=== PATIENT | male | born 1955 | race Caucasian/White ===

== ENCOUNTER 2017-04-14 12:56 | Inpatient (IN) | payer OTHER, BC ==
[2017-04-14 13:54] LABS: HEMATOCRIT 44.4 % (42.0-52.0); HEMOGLOBIN 14.7 g/dl (14.0-18.0); MEAN CORPUSCULAR HEMOGLOBIN 28.1 pg (27.0-33.0); MEAN CORPUSCULAR HGB CONC 33.1 g/dl (32.0-36.5); MEAN CORPUSCULAR VOLUME 84.7 fl (80.0-96.0); PLATELET COUNT, AUTOMATED 257 10^3/uL (150-450); RED BLOOD COUNT 5.24 10^6/uL (4.30-6.10); RED CELL DISTRIBUTION WIDTH 13.4 % (11.5-14.5); WHITE BLOOD COUNT 9.1 10^3/uL (4.0-10.0)
[2017-04-14 14:09] LABS: INR 1.03; PROTHROMBIN TIME 13.6 SECONDS (12.4-14.5)
[2017-04-14 14:10] LABS: PARTIAL THROMBOPLASTIN TIME 28.1 SECONDS (26.8-37.9)
[2017-04-14 14:15] LABS: AMPHETAMINES LEVEL URINE NEGATIVE (NEGATIVE); BARBITURATES URINE NEGATIVE (NEGATIVE); BENZODIAZEPINES URINE NEGATIVE (NEGATIVE); CANNABINOIDS URINE NEGATIVE (NEGATIVE); COCAINE METABOLITE URINE NEGATIVE (NEGATIVE); METHADONE URINE NEGATIVE (NEGATIVE); OPIATES URINE NEGATIVE (NEGATIVE); PHENCYCLIDINE URINE NEGATIVE (NEGATIVE)
[2017-04-14 14:24] LABS: ALBUMIN 3.4 GM/DL (3.2-5.2); ALBUMIN/GLOBULIN RATIO 1.06 (1.00-1.93); ALKALINE PHOSPHATASE 64 U/L (45-117); ALT/SGPT 30 U/L (12-78); ANION GAP 6 MEQ/L (8-16); AST/SGOT 20 U/L (7-37); BILIRUBIN,DIRECT < 0.1 MG/DL (0.0-0.2); BILIRUBIN,TOTAL 0.3 MG/DL (0.2-1.0); BLOOD UREA NITROGEN 17 MG/DL (7-18); CALCIUM LEVEL 8.3 MG/DL (8.8-10.2); CARBON DIOXIDE LEVEL 29 MEQ/L (21-32); CHLORIDE LEVEL 107 MEQ/L (98-107); CREATININE FOR GFR 1.36 MG/DL (0.70-1.30); ETHYL ALCOHOL (ETHANOL) < 0.003 % (0.000-0.010); GLOMERULAR FILTRATION RATE 56.5 (>49); GLUCOSE, FASTING 119 MG/DL (70-100); POTASSIUM SERUM 3.7 MEQ/L (3.5-5.1); SALICYLATE LEVEL < 1.7 MG/DL (5.0-30.0); SODIUM LEVEL 142 MEQ/L (136-145); TOTAL PROTEIN 6.6 GM/DL (6.4-8.2)
[2017-04-14 14:25] LABS: ACETAMINOPHEN LEVEL < 2.0 UG/ML (10.0-30.0)
[2017-04-14] MEDS ORDERED: MOM 30ML SUSPENSION UDC PO (19:30)
[2017-04-14] MEDS ORDERED: OLANZapine 5 MG TAB PO (19:30)
[2017-04-14] MEDS ORDERED: traZODone 50 MG TAB PO (19:30)
[2017-04-14] MEDS ORDERED: MAALOX 30 ML SUSP *UDC PO (19:30)
[2017-04-14] MEDS ORDERED: ACETAMINOPHEN TAB 650MG DOSE (2X325MG) PO (19:30)
[2017-04-14] MEDS: LOSARTAN 50 MG TAB PO (21:00)
[2017-04-14] MEDS: ATORVASTATIN 20 MG TAB PO (21:00)
[2017-04-14] MEDS: GABAPENTIN 300 MG CAP PO (21:00)
[2017-04-14] MEDS: APIXABAN 5 MG TAB (ELIQUIS) PO (21:00)
[2017-04-15] MEDS: LEVOTHYROXINE 100MCG TABLET (0.1MG) PO (06:20)
[2017-04-15] MEDS: metFORMIN (GLUCOPHAGE) 500 MG TAB PO (08:16)
[2017-04-15] MEDS: APIXABAN 5 MG TAB (ELIQUIS) PO ×2 (08:16→21:02)
[2017-04-15] MEDS: SERTRALINE HCL 50 MG TAB PO ×2 (08:16→12:28)
[2017-04-15] MEDS: diltiaZEM **CD** 180 MG CAP PO (08:16)
[2017-04-15] MEDS: FENOFIBRATE 145 MG TAB (TRICOR) PO (08:16)
[2017-04-15] MEDS: FUROSEMIDE 40 MG TAB PO (08:16)
[2017-04-15] MEDS: OMEPRAZOLE 20 MG CAP PO (08:17)
[2017-04-15] MEDS: GABAPENTIN 300 MG CAP PO ×2 (08:17→21:04)
[2017-04-15 11:22] LABS: ESTIMATED AVERAGE GLUCOSE 160 MG/DL (60-110); HEMOGLOBIN A1c 7.2 %
[2017-04-15] MEDS: PILL CUTTER/CRUSHER XX (12:27)
[2017-04-15] MEDS: ATORVASTATIN 20 MG TAB PO (21:04)
[2017-04-15] MEDS: LOSARTAN 50 MG TAB PO (21:05)
[2017-04-16] MEDS: LEVOTHYROXINE 100MCG TABLET (0.1MG) PO (06:03)
[2017-04-16 06:27] LABS: BEDSIDE GLUCOSE 129 MG/DL (80-115)
[2017-04-16] MEDS: metFORMIN (GLUCOPHAGE) 500 MG TAB PO (08:23)
[2017-04-16] MEDS: FENOFIBRATE 145 MG TAB (TRICOR) PO (08:23)
[2017-04-16] MEDS: ARIPiprazole 15 MG TAB (AbiLIFY) PO (08:24)
[2017-04-16] MEDS: APIXABAN 5 MG TAB (ELIQUIS) PO ×2 (08:24→21:02)
[2017-04-16] MEDS: SERTRALINE 100 MG TAB PO (08:26)
[2017-04-16] MEDS: GABAPENTIN 300 MG CAP PO ×2 (08:26→21:03)
[2017-04-16] MEDS: OMEPRAZOLE 20 MG CAP PO (08:26)
[2017-04-16] MEDS: diltiaZEM **CD** 180 MG CAP PO (08:26)
[2017-04-16] MEDS: FUROSEMIDE 40 MG TAB PO (08:26)
[2017-04-16] MEDS: PILL CUTTER/CRUSHER XX (08:27)
[2017-04-16 08:46] LABS: ALBUMIN 3.5 GM/DL (3.2-5.2); ALBUMIN/GLOBULIN RATIO 1.17 (1.00-1.93); ALKALINE PHOSPHATASE 80 U/L (45-117); ALT/SGPT 29 U/L (12-78); ANION GAP 8 MEQ/L (8-16); AST/SGOT 18 U/L (7-37); BILIRUBIN,TOTAL 0.3 MG/DL (0.2-1.0); BLOOD UREA NITROGEN 18 MG/DL (7-18); CALCIUM LEVEL 8.4 MG/DL (8.8-10.2); CARBON DIOXIDE LEVEL 26 MEQ/L (21-32); CHLORIDE LEVEL 105 MEQ/L (98-107); CREATININE FOR GFR 1.32 MG/DL (0.70-1.30); GLOMERULAR FILTRATION RATE 58.5 (>49); GLUCOSE, FASTING 222 MG/DL (70-100); POTASSIUM SERUM 4.3 MEQ/L (3.5-5.1); SODIUM LEVEL 139 MEQ/L (136-145); TOTAL PROTEIN 6.5 GM/DL (6.4-8.2)
[2017-04-16 18:57] LABS: BEDSIDE GLUCOSE 217 MG/DL (80-115)
[2017-04-16] MEDS: LOSARTAN 50 MG TAB PO (21:03)
[2017-04-16] MEDS: ATORVASTATIN 20 MG TAB PO (21:03)
[2017-04-17] MEDS: LEVOTHYROXINE 100MCG TABLET (0.1MG) PO (05:34)
[2017-04-17 06:07] LABS: BEDSIDE GLUCOSE 120 MG/DL (80-115)
[2017-04-17 07:30] LABS: ALBUMIN 3.4 GM/DL (3.2-5.2); ALKALINE PHOSPHATASE 70 U/L (45-117); ALT/SGPT 28 U/L (12-78); ANION GAP 8 MEQ/L (8-16); AST/SGOT 23 U/L (7-37); BILIRUBIN,TOTAL 0.5 MG/DL (0.2-1.0); BLOOD UREA NITROGEN 16 MG/DL (7-18); CALCIUM LEVEL 8.6 MG/DL (8.8-10.2); CARBON DIOXIDE LEVEL 27 MEQ/L (21-32); CHLORIDE LEVEL 104 MEQ/L (98-107); CREATININE FOR GFR 1.36 MG/DL (0.70-1.30); GLOMERULAR FILTRATION RATE 56.5 (>49); GLUCOSE, FASTING 190 MG/DL (70-100); POTASSIUM SERUM 4.1 MEQ/L (3.5-5.1); SODIUM LEVEL 139 MEQ/L (136-145); TOTAL PROTEIN 6.5 GM/DL (6.4-8.2)
[2017-04-17] MEDS: diltiaZEM **CD** 180 MG CAP PO (08:30)
[2017-04-17] MEDS: FENOFIBRATE 145 MG TAB (TRICOR) PO (08:30)
[2017-04-17] MEDS: OMEPRAZOLE 20 MG CAP PO (08:30)
[2017-04-17] MEDS: SERTRALINE 100 MG TAB PO (08:30)
[2017-04-17] MEDS: GABAPENTIN 300 MG CAP PO ×2 (08:30→21:11)
[2017-04-17] MEDS: PILL CUTTER/CRUSHER XX (08:31)
[2017-04-17] MEDS: FUROSEMIDE 40 MG TAB PO (08:31)
[2017-04-17] MEDS: APIXABAN 5 MG TAB (ELIQUIS) PO ×2 (08:31→21:11)
[2017-04-17] MEDS: metFORMIN (GLUCOPHAGE) 500 MG TAB PO (08:31)
[2017-04-17] MEDS: ARIPiprazole 15 MG TAB (AbiLIFY) PO (08:31)
[2017-04-17] MEDS: LOSARTAN 50 MG TAB PO (21:11)
[2017-04-17] MEDS: ATORVASTATIN 20 MG TAB PO (21:11)
[2017-04-18] MEDS: LEVOTHYROXINE 100MCG TABLET (0.1MG) PO (05:49)
[2017-04-18] MEDS: FENOFIBRATE 145 MG TAB (TRICOR) PO (08:14)
[2017-04-18] MEDS: FUROSEMIDE 40 MG TAB PO (08:14)
[2017-04-18] MEDS: APIXABAN 5 MG TAB (ELIQUIS) PO (08:14)
[2017-04-18] MEDS: GABAPENTIN 300 MG CAP PO (08:15)
[2017-04-18] MEDS: diltiaZEM **CD** 180 MG CAP PO (08:15)
[2017-04-18] MEDS: OMEPRAZOLE 20 MG CAP PO (08:15)
[2017-04-18] MEDS: SERTRALINE 100 MG TAB PO (08:15)
[2017-04-18] MEDS: ARIPiprazole 15 MG TAB (AbiLIFY) PO (08:15)
[2017-04-18] MEDS: metFORMIN (GLUCOPHAGE) 500 MG TAB PO (08:15)
[2017-04-18] MEDS: PILL CUTTER/CRUSHER XX (08:17)
[2017-04-18 10:40] LABS: BEDSIDE GLUCOSE 214 MG/DL (80-115)
[2017-04-18 10:40] LABS: BEDSIDE GLUCOSE 138 MG/DL (80-115)
== END 2017-04-18 12:23 | disposition home or self-care (01) | DRG 751 ==
LOC: M PSY 04-15 14:14 → M ED 12:56 → M ED INP 19:16 → M PSY 20:35
DX: F32.2 Major depressive disorder, single episode, severe without psychotic features (principal); I48.91 Unspecified atrial fibrillation; R45.851 Suicidal ideations; E11.9 Type 2 diabetes mellitus without complications; F41.1 Generalized anxiety disorder; K21.9 Gastro-esophageal reflux disease without esophagitis; I10 Essential (primary) hypertension; E78.5 Hyperlipidemia, unspecified; G47.33 Obstructive sleep apnea (adult) (pediatric); E03.9 Hypothyroidism, unspecified; E66.9 Obesity, unspecified; Z68.39 Body mass index [BMI] 39.0-39.9, adult; Z79.01 Long term (current) use of anticoagulants; Z79.84 Long term (current) use of oral hypoglycemic drugs; Z99.89 Dependence on other enabling machines and devices; Z91.5 Personal history of self-harm; Z95.0 Presence of cardiac pacemaker; Z79.899 Other long term (current) drug therapy

== ENCOUNTER 2019-06-11 11:36 | Day surgery (SDC) | payer OTHER ==
[~2019-06-11] VITALS: Ht 172.7 cm; Wt 124.2 kg
[~2019-06-11 11:36] MED LIST: ABIL1TAB11 PO; ABIL1TAB12 PO; AMBI10TA OR; ARIP1TAB10 PO; ATOR40TA75 PO; BABY81CH OR; CARD120C3 PO; CARD120T6 OR; CELE40TA OR; COUM1TAB17 OR; COUM1TAB17 PO; COUM7.5T PO; DILT1CAP4 PO; EFFE150C2 PO; EFFE75CA2 PO; ELIQ5TAB PO; FENO145T7 PO; FURO40TA2 PO; GABA-845 PO; GABA600T4 PO; LASI20TA3 PO; LEVO100I PO; LEVO100T54 PO; LIDOCAINE 1% MDV 20ML VIAL SQ PRN; LIDOCAINE 1% SDV 30ML VIAL As Ordered ONE; LOSA50TA88 PO; LOVA20TA2 PO; LR 1,000 ML IV ONE; METF500T13 PO; METO-745 OR; METO50TA7 PO; NEOSPORIN TOP OINT 15GM As Ordered ONE; NITR0.4S14 SL; NITR4TASL SL; OMEP40CA97 PO; PATIENT COMMENT; PRIL20CA OR; RANO5TAB OR; SERT-138 PO; SERT-141 PO; SIMV40TA2 OR; SOTA120T OR; SYNT50TA PO; TRAZ-252 PO; TRAZ150T OR; TRIC145T19 OR; VANCOMYCIN 1000MG/20ML VIAL As Ordered ONE; ZOLO50TA PO; ceFAZolin SOD 1 GM in D5W MINI-BAG PLUS 50 ML IV ONE; ceFAZolin SOD 2 GM in IV 1 EA IV ONE
[2019-06-11] MEDS ORDERED: BACITRACIN OINTMENT 30GM TUBE As Ordered ONE (14:17)
[2019-06-11] MEDS ORDERED: ONDANSETRON 4MG/2ML VIAL As Ordered ONE (14:18)
[2019-06-11] MEDS ORDERED: MIDAZOLAM INJ 2MG/2ML VIAL (J2250 PER 1MG) As Ordered ONE (14:18)
[2019-06-11] MEDS ORDERED: fentaNYL 100 MCG/2 ML INJECTION (J3010) As Ordered ONE ×2 (14:18→14:19)
[2019-06-11] MEDS ORDERED: LIDOCAINE 2% 100MG/5ML SDV (FOR ANES.) As Ordered ONE (14:18)
[2019-06-11] MEDS ORDERED: propofoL 200 MG/20 ML VIAL As Ordered ONE (14:18)
[2019-06-11 15:20] VITALS: BP 144/86
--- NOTE | 2019-06-11 17:24 | RO ---
DATE OF PROCEDURE: 06/11/2019 PREPROCEDURE DIAGNOSIS: Pacemaker battery depletion. POSTPROCEDURE DIAGNOSIS: Pacemaker battery depletion. FINDINGS: Pacemaker battery depletion. PROCEDURE PERFORMED: Explantation of old dual-chamber pacemaker pulse generator and replacement of new dual-chamber pacemaker pulse generator. SURGEON: Rene Simeon MD CARE INFORMATION ASSOCIATE: None. ANESTHESIA: Lidocaine 1% local/monitored anesthetic care. SPECIMENS: Old [employer] pacemaker pulse generator. ESTIMATED BLOOD LOSS: Less than 10 mL. No blood products replaced. No drains. No complications. DESCRIPTION OF PROCEDURE: The patient was prepped and draped over the left pectoral region. 3M Ioban film was applied. Lidocaine 1% was used for local anesthetic. An incision was made with a PEAK PlasmaBlade approximately 2-1/2 inches in length over the body of the existing pacemaker pulse generator, approximately 1.5 cm below the original incision line. The PEAK PlasmaBlade was used to get through the fatty layer and down to the fibrous anterior capsule. Fine scissor dissection was used to get through the anterior capsule. The incision holding down the pacemaker pulse generator was then cut using a #15 blade. The pacemaker pulse generator was then removed from the pocket. The terminal pins were removed from the existing pacemaker pulse generator after the set screws wee loosened. The existing pacemaker leads were then tested by hooking them up to alligator clips and were found to be satisfactory for chronic leads. Next, the terminal pins were placed into the header of the new pacemaker pulse generator, each one was secured by tightening the set screws with the hex screwdriver. Next, I expanded the superior aspect of the pacemaker pocket a small amount using the PEAK PlasmaBlade to accommodate the new pacemaker pulse generator. The new pacemaker pulse generator was then placed into the pacemaker pocket. The anterior capsule and deep layer were closed using individual sutures consisting of #2-0 Vicryl. A few additional #2-0 Vicryl sutures were used to help approximate the more superficial layer. The skin was then closed using margo. Patient tolerated the procedure well without any immediate complications. The pacemaker pulse generator that was removed was a [employer] model 5826, originally implanted 04/03/2009, and it had serial number [id number]. The new pacemaker pulse generator implanted was a [employer] MRI with model number DC5565 and serial number [id number]. The existing right ventricle lead was a [employer], model 1646T/52 with serial number [id number], originally implanted 04/03/2009. Testing in the operating room with the PSA analyzer showed capture threshold of 0.6 volts at 0.4 milliseconds with R wave amplitude of 12.0 millivolts and lead impedance of 640 ohms. The existing right atrial lead was a [employer] model 1782T/46 with serial number [id number], originally implanted 04/03/2009. Testing in the operating room for the atrial lead with the PSA analyzer showed capture threshold of 0.75 volts at 0.4 milliseconds with P wave amplitude of 5.0 millivolts and lead impedance of 440 ohms.
== END 2019-06-11 15:25 | disposition home or self-care (01) ==
LOC: M SDC 11:36
PROVIDERS: ATTEND Internal Medicine Cardiovascular Disease
DX: Z45.09 Encounter for adjustment and management of other cardiac device (principal); I48.0 Paroxysmal atrial fibrillation; I25.10 Atherosclerotic heart disease of native coronary artery without angina pectoris; Z95.5 Presence of coronary angioplasty implant and graft; Z95.0 Presence of cardiac pacemaker; I11.9 Hypertensive heart disease without heart failure; E78.2 Mixed hyperlipidemia; E66.01 Morbid (severe) obesity due to excess calories; Z68.41 Body mass index [BMI] 40.0-44.9, adult; D64.9 Anemia, unspecified; E11.9 Type 2 diabetes mellitus without complications; F31.9 Bipolar disorder, unspecified; G47.30 Sleep apnea, unspecified; F41.9 Anxiety disorder, unspecified; E03.9 Hypothyroidism, unspecified; E78.5 Hyperlipidemia, unspecified; Z79.899 Other long term (current) drug therapy; Z79.01 Long term (current) use of anticoagulants; Z87.891 Personal history of nicotine dependence
CPT/HCPCS: 33228; C1785; J0690; J2250; J2405; J3010

== ENCOUNTER → 2023-06-03 | Outpatient (CLI) | payer MEDICARE ==
[~2023-06-03] MED LIST changes: +BARIUM SULFATE 700 MG TABLET (E-Z-DISK) As Ordered ONE; -COUM7.5T PO; +COUM7.5T6 PO; +DILT180C39 PO; -DILT1CAP4 PO; +E-Z-PAQUE 96% w/w SUSP 176GM BTL As Ordered ONE; -EFFE150C2 PO; +EFFE150C3 PO; +GABA-284 PO; -GABA-845 PO; -LIDOCAINE 1% MDV 20ML VIAL SQ PRN; -LIDOCAINE 1% SDV 30ML VIAL As Ordered ONE; +LOSA50TA28 PO; -LOSA50TA88 PO; -LR 1,000 ML IV ONE; -NEOSPORIN TOP OINT 15GM As Ordered ONE; +OMEP40CA4 PO; -OMEP40CA97 PO; -VANCOMYCIN 1000MG/20ML VIAL As Ordered ONE; +VARIBAR NECTAR 40% w/v 240ML SUSP BTL As Ordered ONE; +VARIBAR PUDDING 40% w/v 230ML TUBE As Ordered ONE; -ceFAZolin SOD 1 GM in D5W MINI-BAG PLUS 50 ML IV ONE; -ceFAZolin SOD 2 GM in IV 1 EA IV ONE
== END ==
LOC: M RAD 10:52
PROVIDERS: ATTEND Otolaryngology
DX: R13.19 Other dysphagia (principal)

== ENCOUNTER → 2023-08-13 | Outpatient (CLI) | payer MEDICARE ==
[~2023-08-13] MED LIST changes: -BARIUM SULFATE 700 MG TABLET (E-Z-DISK) As Ordered ONE; -E-Z-PAQUE 96% w/w SUSP 176GM BTL As Ordered ONE; -VARIBAR NECTAR 40% w/v 240ML SUSP BTL As Ordered ONE; -VARIBAR PUDDING 40% w/v 230ML TUBE As Ordered ONE
== END ==
LOC: M ONCR 12:39
PROVIDERS: ATTEND General Practice
DX: C44.319 Basal cell carcinoma of skin of other parts of face (principal); Z79.899 Other long term (current) drug therapy

== ENCOUNTER → 2023-09-17 | Outpatient (RCR) | payer MEDICARE | LOC: M ONCR 09-03 13:31 | PROVIDERS: ATTEND General Practice | DX: Z51.0 Encounter for antineoplastic radiation therapy (principal); C44.319 Basal cell carcinoma of skin of other parts of face ==

== ENCOUNTER 2023-10-14 14:31 | Outpatient (RCR) | payer MEDICARE ==
[~2023-10-14 14:31] MED LIST changes: +GABA-1490 PO; -GABA600T4 PO
== END 2023-10-18 ==
LOC: M ONCR 14:31
PROVIDERS: ATTEND General Practice
DX: Z51.0 Encounter for antineoplastic radiation therapy (principal); C44.319 Basal cell carcinoma of skin of other parts of face

== ENCOUNTER → 2023-11-14 | Outpatient (CLI) | payer MEDICARE | LOC: M ONCR 14:31 | PROVIDERS: ATTEND General Practice | DX: Z08 Encounter for follow-up examination after completed treatment for malignant neoplasm (principal); Z92.3 Personal history of irradiation ==

== ENCOUNTER → 2023-12-23 | Outpatient (CLI) | payer MEDICARE | LOC: M PLAIMG 10:51 | PROVIDERS: ATTEND Internal Medicine Pulmonary Disease | DX: R91.8 Other nonspecific abnormal finding of lung field (principal); I70.0 Atherosclerosis of aorta; I25.10 Atherosclerotic heart disease of native coronary artery without angina pectoris; Z95.0 Presence of cardiac pacemaker ==

== ENCOUNTER → 2024-04-15 | Outpatient (CLI) | payer OTHER | LOC: M ONCR 14:37 | PROVIDERS: ATTEND General Practice | DX: Z08 Encounter for follow-up examination after completed treatment for malignant neoplasm (principal); Z85.828 Personal history of other malignant neoplasm of skin; Z98.890 Other specified postprocedural states; Z92.3 Personal history of irradiation; Z87.891 Personal history of nicotine dependence; Z79.01 Long term (current) use of anticoagulants; Z79.890 Hormone replacement therapy; Z79.899 Other long term (current) drug therapy ==